=== PATIENT | male | born 1975 | race African-American/Black ===

== ENCOUNTER → 2017-01-05 | Emergency (ER) | payer BC ==
[~2017-01-05] MED LIST: KETAMINE HCL 200 MG/20 ML VIAL IVPUSH ONE; SODIUM CHLORIDE 0.9% 500 ML INFUS.BAG IV ONE; morphine CARPU-JECT 2 MG/1 ML DISP.SYRIN IVPUSH ONE; morphine CARPU-JECT 2 MG/1 ML DISP.SYRIN ONE
[2017-01-05 21:50] VITALS: BMI 27.9
--- NOTE | 2017-01-05 22:48 | PDOC ---
[id number] is a 41 year old male, with a significant past medical history, who presents to the emergency department with pain and deformity to his right ankle s/p falling off of a hoverboard tonight. The patient states he was stepping off of the hoverboard when he fell and twisted his right ankle. He denies chest pain, shortness of breath, headache and dizziness. He denies fever, chills, nausea, vomit, diarrhea and constipation. He denies dysuria, frequency, urgency and hematuria. Allergies: NKDA PCP - Dr. Hemal Renner <Jessica Pedroza - Last Filed: 01/05/17 22:52> <Jackie Bustamante - Last Filed: 01/13/17 05:16> - General Chief Complaint: Injury Stated Complaint: ANKLE PAIN Time Seen by Provider: 01/05/17 21:44 Past History <Jessica Pedroza - Last Filed: 01/05/17 22:52> - Past Medical History Other medical history: denies - Immunization History Immunization Up to Date: Yes - Psycho/Social/Smoking Cessation Hx Suicidal Ideation: No Smoking History: Never smoked Information on smoking cessation initiated: No Hx Alcohol Use: No Drug/Substance Use Hx: No <Jackie Bustamante - Last Filed: 01/13/17 05:16> - Past Medical History Allergies/Adverse Reactions: Allergies Allergy/AdvReac Type Severity Reaction Status Date / Time No Known Allergies Allergy Verified 01/05/17 21:41 Home Medications: Ambulatory Orders Ibuprofen [Motrin -] 600 mg PO TID #30 tablet 01/05/17 Oxycodone HCl/Acetaminophen [Percocet 5/325 -] 2 tab PO Q6H #30 tablet MDD 8 11/22 Review of Systems - Review of Systems Able to Perform ROS?: Yes Comments:: 01/05/17 22:53 GENERAL/CONSTITUTIONAL: No fever or chills. No weakness. HEAD, EYES, EARS, NOSE AND THROAT: No change in vision. No ear pain or discharge. No sore throat. CARDIOVASCULAR: No chest pain or shortness of breath. RESPIRATORY: No cough, wheezing, or hemoptysis. GASTROINTESTINAL: No nausea, vomiting, diarrhea or constipation. GENITOURINARY: No dysuria, frequency, or change in urination. MUSCULOSKELETAL: (+) Right ankle deformity and pain. No neck or back pain. SKIN: No rash NEUROLOGIC: No headache, vertigo, loss of consciousness, or change in strength/ sensation. ENDOCRINE: No increased thirst. No abnormal weight change. HEMATOLOGIC/LYMPHATIC: No anemia, easy bleeding, or history of blood clots. ALLERGIC/IMMUNOLOGIC: No hives or skin allergy. <Jessica Pedroza - Last Filed: 01/05/17 22:52> *Physical Exam - Vital Signs Last Vital Signs Temp Pulse Resp BP Pulse Ox 98.6 F 85 20 154/96 97 01/05/17 21:41 01/05/17 21:41 01/05/17 21:41 01/05/17 21:41 01/05/17 21:41 - Physical Exam Comments: 01/05/17 22:53 GENERAL: Awake, alert, and fully oriented, in no acute distress HEAD: No signs of trauma EYES: PERRLA, EOMI, sclera anicteric, conjunctiva clear ENT: Auricles normal inspection, hearing grossly normal, nares patent, oropharynx clear without exudates. Moist mucosa NECK: Normal ROM, supple, no lymphadenopathy, JVD, or masses LUNGS: Breath sounds equal, clear to auscultation bilaterally. No wheezes, and no crackles HEART: Regular rate and rhythm, normal S1 and S2, no murmurs, rubs or gallops ABDOMEN: Soft, nontender, normoactive bowel sounds. No guarding, no rebound. No masses EXTREMITIES: (+) Right ankle dislocation deformity and tenderness. moderate edema. DP pulses 2+ and symmetric. No bruising or tenting appreciated. No clubbing or cyanosis. No cords, erythema. NEUROLOGICAL: Cranial nerves II through XII grossly intact. Normal speech, SKIN: Warm, Dry, normal turgor, no rashes or lesions noted. <Jessica Pedroza - Last Filed: 01/05/17 22:52> - Vital Signs Last Vital Signs Temp Pulse Resp BP Pulse Ox 98.6 F 85 20 154/96 97 01/05/17 21:41 01/05/17 21:41 01/05/17 21:41 01/05/17 21:41 01/05/17 21:41 <Jackie Bustamante - Last Filed: 01/13/17 05:16> Procedures - Joint Reduction Right Joint Reduction Site: right: Posterior Dislocation (ANKLE) Pre-Procedure NV Exam: normal Conscious Sedation: No (morphine was enough for the patient) Procedure: Traction Counter Traction Post-Procedure NV Exam: normal Complications: No Post Joint Reduction Film: joint reduced Splint: Yes (orthoglass cast) Immobilized: Yes (orthoglass cast) <Jackie Bustamante - Last Filed: 01/13/17 05:16> ED Treatment Course - RADIOLOGY Radiograph Interpretation: 01/05/17 22:55 Xray of the right ankle was read by Dr. Bustamante at 22:12 Impression: There is evidence of a Trimalleolar fracture and dislocation - Medications Given in the ED: ED Medications Discontinued Medications Generic Name Dose Route Start Last Admin Trade Name Freq PRN Reason Stop Dose Admin Ketamine HCl 100 mg 01/05/17 22:03 01/05/17 22:44 Ketalar - IVPUSH 01/05/17 22:04 Not Given ONCE ONE Morphine Sulfate 2 mg 01/05/17 21:45 01/05/17 21:53 Morphine Injection - IVPUSH 01/05/17 21:46 2 mg ONCE ONE Administration Morphine Sulfate 2 mg 01/05/17 22:04 01/05/17 22:18 Morphine Injection - IVPUSH 01/05/17 22:05 2 mg ONCE ONE Administration Morphine Sulfate 2 mg 01/05/17 22:48 01/05/17 22:50 Morphine Injection - IVPUSH 01/05/17 22:49 2 mg ONCE ONE Administration Sodium Chloride 1,000 ml 01/05/17 21:45 01/05/17 21:53 Normal Saline - IV 01/05/17 21:46 1,000 ml ONCE ONE Administration <Jessica Pedroza - Last Filed: 01/05/17 22:52> - RADIOLOGY Radiology Studies Ordered: Category Date Time Status ANKLE-RIGHT [RAD] Stat Radiology 01/05/17 21:46 Taken ANKLE-RIGHT [RAD] Stat Radiology 01/05/17 22:30 Ordered - Medications Given in the ED: ED Medications Discontinued Medications Generic Name Dose Route Start Last Admin Trade Name Freq PRN Reason Stop Dose Admin Ketamine HCl 100 mg 01/05/17 22:03 01/05/17 22:44 Ketalar - IVPUSH 01/05/17 22:04 Not Given ONCE ONE Morphine Sulfate 2 mg 01/05/17 21:45 01/05/17 21:53 Morphine Injection - IVPUSH 01/05/17 21:46 2 mg ONCE ONE Administration Morphine Sulfate 2 mg 01/05/17 22:04 01/05/17 22:18 Morphine Injection - IVPUSH 01/05/17 22:05 2 mg ONCE ONE Administration Sodium Chloride 1,000 ml 01/05/17 21:45 01/05/17 21:53 Normal Saline - IV 01/05/17 21:46 1,000 ml ONCE ONE Administration <Jackie Bustamante - Last Filed: 01/13/17 05:16> Medical Decision Making - Medical Decision Making 01/05/17 22:55 Dr. Rutherford was paged via phone answering service at 22:26 requesting a call back for doctor to doctor consult regarding this patient with trimalleolar fracture/dislocation. Dr. Rutherford returned the call at 22:37 and the patients case was discussed. He suggests the patient be placed in a splint, given crutches, and follow-up in 2 weeks as outpatient for surgical repair of the trimalleolar fracture <Jessica Pedroza - Last Filed: 01/05/17 22:52> - Medical Decision Making 01/13/17 05:14 Pt tripped off of his friend's daughter's hover board and dislocated and broke his right ankle. He presents with a deformed ankle that I reduced and splinted. Pt sent home with crutches and non weightbearing. Follow with Ortho Dr. Rutherford, Pain control. Elevation. <Jcakie Bustamante - Last Filed: 01/13/17 05:16> *DC/Admit/Observation/Transfer - Attestations Scribe Attestion: 01/05/17 22:56 Documentation prepared by Jessica Pedroza, acting as medical oncology physician for Jackie Bustamante MD <Jessica Pedroza - Last Filed: 01/05/17 22:52> - Discharge Dispostion Admit: No <Jackie Bustamante - Last Filed: 01/13/17 05:16> Diagnosis at time of Disposition: Ankle dislocation, Trimalleolar fracture of right ankle - Discharge Dispostion Disposition: HOME Condition at time of disposition: Stable - Prescriptions Prescriptions: Ibuprofen [Motrin -] 600 mg PO TID #30 tablet Oxycodone HCl/Acetaminophen [Percocet 5/325 -] 2 tab PO Q6H #30 tablet MDD 8 - Referrals Referrals: Hemal Renner [Primary Care Provider] - - Patient Instructions Printed Discharge Instructions: DI for Ankle Dislocation, DI for Ankle Fracture
[2017-01-05 23:12] VITALS: BP 152/86; PULSE 90; TEMP 98.2
== END | disposition home or self-care (01) ==
LOC: JER 21:30
PROC: 2W3LX1Z Immobilization of Right Lower Extremity using Splint (ICD-10-PCS; principal; 2017-01-05)
DX: S82.851A Displaced trimalleolar fracture of right lower leg, initial encounter for closed fracture (principal); W19.XXXA Unspecified fall, initial encounter; X50.1XXA Overexertion from prolonged static or awkward postures, initial encounter; Y93.59 Activity, other involving other sports and athletics played individually; Y92.89 Other specified places as the place of occurrence of the external cause; Y99.8 Other external cause status
CPT/HCPCS: 73610-TC-RT; 99281-25

== ENCOUNTER 2019-02-02 19:38 | Emergency (ER) | payer BC ==
--- NOTE | 2019-02-02 19:47 | PDOC ---
Rapid Medical Evaluation Chief Complaint: Headache Time Seen by Provider: 02/02/19 19:44 Medical Evaluation: Allergies Allergy/AdvReac Type Severity Reaction Status Date / Time No Known Allergies Allergy Verified 01/05/17 21:41 02/02/19 19:45 I have performed a brief in person evaluation at triage on this patient. CC: WILLIAM HPI: Pt states he has a WILLIAM x 1-2 days in the occipital region. Pt states he checked his BP at home and was getting a systolic pressure of 180-190. Pt is not currently on HTN meds. Denies CP, Denies SOB PE: Skin: clear Lungs: clear Heart: RRR MS: Moves all extremities without difficulty Neuro: Alert and oriented Psych: Appropriate affect I have ordered: Basic labs at this time. Pt will proceed to the main ED for further evaluation. Discharge Disposition - Diagnosis Headache Qualifiers: Headache type: other headache syndrome Qualified Code(s): G44.89 - Other headache syndrome - Referrals - Patient Instructions - Post Discharge Activity
[2019-02-02 19:48] VITALS: BP 151/102; PULSE 102; TEMP 98.3; BMI 28.7
[2019-02-02 21:11] LABS: BASO % 0.9 % (0-2.0); EOS % 2.7 % (0-4.5); HEMATOCRIT 42.6 % (35.4-49); HEMOGLOBIN 14.7 GM/dL (11.7-16.9); LYMPH % 34.4 % (8-40); MCH 27.3 pg (25.7-33.7); MCHC 34.5 g/dl (32.0-35.9); MEAN CELL VOLUME 79.1 fl (80-96); MEAN PLT VOLUME 8.5 fl (7.5-11.1); MONO % 5.4 % (3.8-10.2); NEUT % 56.6 % (42.8-82.8); PLATELET COUNT 229 K/MM3 (134-434); RBC 5.39 M/mm3 (4.00-5.60); RDW 13.1 % (11.9-15.9); WHITE BLOOD COUNT 7.5 K/mm3 (4.0-10.0)
--- NOTE | 2019-02-02 21:34 | PDOC ---
History of Present Illness - General Chief Complaint: Headache Stated Complaint: HYPERTENSION Time Seen by Provider: 02/02/19 19:44 - History of Present Illness Initial Comments: 43 year old male with PMH of HTN and HLD (unmedicated for the past 1.5 years) presenting with sever headache for the past two days. states that he has been under a lot of personal and work stress and whenever he feels stressed he gets a sharp posterior right sided intermittent headache. The headache is slightly worse with light and sound when it is maximal. Denies exacerbation in the morning, when bending over, or otherwise performing vasalva maneuvers. Denies nausea, vomiting. fevers, chills, visual symptoms, numbness, tingling, or other symptoms. Admits to some minor relief with Tylenol. 02/02/19 21:43 Past History - Past Medical History Allergies/Adverse Reactions: Allergies Allergy/AdvReac Type Severity Reaction Status Date / Time No Known Allergies Allergy Verified 01/05/17 21:41 Home Medications: Ambulatory Orders Ibuprofen [Motrin -] 600 mg PO TID #30 tablet 01/05/17 Oxycodone HCl/Acetaminophen [Percocet 5/325 -] 2 tab PO Q6H #30 tablet MDD 8 11/22 COPD: No HTN: Yes - Immunization History Immunization Up to Date: Yes - Suicide/Smoking/Psychosocial Hx Smoking History: Never smoked Hx Alcohol Use: No Drug/Substance Use Hx: No Review of Systems - Review of Systems Constitutional: No: Chills, Diaphoresis, Fever HEENTM: No: Eye Pain, Blurred Vision, Tearing Respiratory: No: Cough, Orthopnea, Shortness of Breath Cardiac (ROS): No: Chest Pain, Edema, Irregular Heart Rate ABD/GI: No: Diarrhea, Nausea, Vomiting : No: Dysuria, Discharge Musculoskeletal: No: Back Pain, Joint Pain Integumentary: No: Bruising, Change in Color, Erythema, Flushing, Lesions Neurological: Yes: Headache. No: Numbness, Paresthesia, Pre-Existing Deficit, Seizure, Tingling Psychiatric: No: Anxiety, Depression Hematologic/Lymphatic: No: Anemia, Blood Clots, Easy Bleeding *Physical Exam - Vital Signs Last Vital Signs Temp Pulse Resp BP Pulse Ox 98.3 F 102 H 18 151/102 H 98 02/02/19 19:45 02/02/19 19:45 02/02/19 19:45 02/02/19 19:45 02/02/19 19:45 - Physical Exam General Appearance: Yes: Nourished, Appropriately Dressed. No: Apparent Distress HEENT: positive: EOMI, NANETTE, Normal ENT Inspection, Normal Voice, Other (no scalp tenderness) Neck: positive: Trachea midline, Normal Thyroid, Supple. negative: Tender, Rigid Respiratory/Chest: positive: Lungs Clear, Normal Breath Sounds. negative: Chest Tender, Respiratory Distress, Accessory Muscle Use Cardiovascular: positive: Regular Rhythm, Regular Rate Gastrointestinal/Abdominal: positive: Normal Bowel Sounds, Flat, Soft. negative : Tender Lymphatic: negative: Adenopathy, Tenderness Musculoskeletal: positive: Normal Inspection. negative: Decreased Range of Motion Extremity: positive: Normal Capillary Refill, Normal Inspection, Normal Range of Motion. negative: Tender Integumentary: positive: Normal Color, Dry, Warm Neurologic: positive: Fully Oriented, Alert, Normal Mood/Affect, Normal Response , Motor Strength / ED Treatment Course - LABORATORY CBC & Chemistry Diagram: 02/02/19 20:56 02/02/19 20:56 - ADDITIONAL ORDERS Additional order review: 02/02/19 20:56 RBC 5.39 MCV 79.1 L MCHC 34.5 RDW 13.1 MPV 8.5 Neutrophils % 56.6 Lymphocytes % 34.4 Monocytes % 5.4 Eosinophils % 2.7 Basophils % 0.9 Medical Decision Making - Medical Decision Making 43 year old male with PMH of untreated HTN and HLD presenting with headache for the past two days that are intermittent and partially relieved with Tylenol. Patient also slightly hypertensive Will obtain head t to rule out mass and CBC / CMP to rule out hypertensive emergency. Patient signed out to Dr. Paul pending CMP results and head CT. Given 1 L NS, ofirmev IV 1G, and Reglan PO and I presume this patient will go home with PCP follow up. 02/02/19 21:51 *DC/Admit/Observation/Transfer Diagnosis at time of Disposition: Headache Qualifiers: Headache type: other headache syndrome Qualified Code(s): G44.89 - Other headache syndrome - Discharge Dispostion Disposition: HOME Condition at time of disposition: Improved Decision to Admit order: No - Referrals Referrals: [facility] [Provider Group] - Patient Instructions Printed Discharge Instructions: DI for Headache Additional Instructions: Please use ibuprofen and Tylenol for your headache. Please follow up with the primary care clinic to start an anti-hypertensive medication and cholesterol medication. Please return to the ED if you have new or worsening symptoms. - Post Discharge Activity
[2019-02-02] MEDS ORDERED: ACETAMINOPHEN 1000 MG/100 ML VIAL (NON FORMULARY) IVPB ONE (21:40)
[2019-02-02] MEDS ORDERED: METOCLOPRAMIDE HCL 10 MG TABLET (FP) PO ONE ×2 (21:40→22:13)
[2019-02-02] MEDS ORDERED: SODIUM CHLORIDE 0.9% 500 ML INFUS.BAG IV ONE (21:41)
[2019-02-02 21:43] LABS: ALBUMIN 3.7 g/dl (3.4-5.0); ALK PHOS 92 U/L (45-117); ANION GAP 7 MMOL/L (8-16); BILIRUBIN,TOTAL 0.4 mg/dL (0.2-1); BLOOD UREA NITROGEN 13 mg/dL (7-18); CALCIUM 9.2 mg/dL (8.5-10.1); CHLORIDE 104 mmol/L (98-107); CO2 30 mmol/L (21-32); CREATININE 1.2 mg/dL (0.55-1.3); GLUCOSE,RANDOM 89 mg/dL (74-106); POTASSIUM 3.6 mmol/L (3.5-5.1); SGOT/AST 43 U/L (15-37); SGPT/ALT 119 U/L (13-61); SODIUM 141 mmol/L (136-145); TOT PROT 7.5 g/dl (6.4-8.2)
[2019-02-02] MEDS ORDERED: ACETAMINOPHEN INJECTION 100 ML IVPB ONE (22:14)
--- NOTE | 2019-02-02 22:16 | PDOC ---
*Physical Exam - Vital Signs Last Vital Signs Temp Pulse Resp BP Pulse Ox 98.3 F 102 H 18 151/102 H 98 02/02/19 19:45 02/02/19 19:45 02/02/19 19:45 02/02/19 19:45 02/02/19 19:45 - Physical Exam General Appearance: Yes: Nourished, Appropriately Dressed HEENT: positive: Normal Voice, Hearing Grossly Normal Neck: positive: Trachea midline, Supple Respiratory/Chest: positive: Lungs Clear, Normal Breath Sounds Cardiovascular: positive: S1, S2. negative: JVD, Murmur Gastrointestinal/Abdominal: positive: Normal Bowel Sounds, Soft Musculoskeletal: negative: CVA Tenderness (R), CVA Tenderness (L) Extremity: positive: Normal Capillary Refill, Normal Inspection Integumentary: positive: Normal Color, Dry, Warm Neurologic: positive: Fully Oriented, Alert ED Treatment Course - LABORATORY CBC & Chemistry Diagram: 02/02/19 20:56 02/02/19 20:56 - ADDITIONAL ORDERS Additional order review: Laboratory Results 02/02/19 20:56 Sodium 141 Potassium 3.6 Chloride 104 Carbon Dioxide 30 Anion Gap 7 L BUN 13 Creatinine 1.2 Creat Clearance w eGFR 66.08 Random Glucose 89 Calcium 9.2 Total Bilirubin 0.4 AST 43 H ALT 119 H Alkaline Phosphatase 92 Total Protein 7.5 Albumin 3.7 02/02/19 20:56 RBC 5.39 MCV 79.1 L MCHC 34.5 RDW 13.1 MPV 8.5 Neutrophils % 56.6 Lymphocytes % 34.4 Monocytes % 5.4 Eosinophils % 2.7 Basophils % 0.9 Medical Decision Making - Medical Decision Making 02/02/19 22:07 Patient signed out by Dr. Carranza (Resident) 43 year old male with 2 day h/o headache - intermittent, non-positional, relieved with Tylenol, some associated photophobia and sonophobia. S/p Reglan, Tylenol, NS Head CT pending to r/o acute hemorrhage 02/02/19 22:12 Patient evaluated @bedside notes h/o non-adherence to anti-hypertensives for the last 2-3 weeks because he ran out of medication and his PMD, Dr. Renner retired. States he measured his BP at home today and it was 190's/100's. Repeat BP @ bedside 163/102. Will repeat once pain controlled. 02/02/19 23:18 ALT 119, other labs unremarkable My read of Head CT shows no acute bleed 02/03/19 01:[address] negative Patient reassessed @ bedside, BP 142/103 Symptomatically improved Will d/c home with 10 day prescription of BP medication, referral to primary care and return precautions. Clinical Impression: Tension WILLIAM vs. new onset migraine I discussed the physical exam findings, ancillary test results and final diagnoses with the patient. I answered all of the patient's questions. The patient was satisfied with the care received and felt comfortable with the discharge plan and treatment plan. The patient will return to the Emergency Department with any new, persistent or worsening symptoms. *DC/Admit/Observation/Transfer Diagnosis at time of Disposition: Headache Qualifiers: Headache type: other headache syndrome Qualified Code(s): G44.89 - Other headache syndrome - Discharge Dispostion Disposition: HOME Condition at time of disposition: Improved - Prescriptions Prescriptions: Amlodipine Besylate [Norvasc -] 5 mg PO DAILY #10 tablet - Referrals Referrals: [facility] [place] Group] - Patient Instructions Printed Discharge Instructions: DI for Headache Additional Instructions: You can take Motrin (up to 3200 mg daily) alternating Tylenol (up to 4000 mg daily) every six hours for the next 1 week for your headache. We have sent a 10 day prescription of your blood pressure medication to your pharmacy. Make a follow-up appointment with a primary care doctor to establish usp care. We have provided you with a referral or you can call your insurance company for a list of doctors. Your care is not complete until you are evaluated by a primary care doctor. Return to the Emergency Department for any new/worsening/concerning symptoms. - Post Discharge Activity
--- NOTE | 2019-02-03 00:43 | PDOC ---
Documentation entered by Jennifer Cassidy SCRIBE, acting as scribe for Gloria Lopez DO. Gloria Lopez DO: This documentation has been prepared by the [facility] child Daisy, SCRIBE, under my direction and personally reviewed by me in its entirety. I confirm that the documentation accurately reflects all work , treatment, procedures, and medical decision making performed by me. Attending Attestation - Resident Resident Name: Chastity Carranza - ED Attending Attestation I have performed the following: I have examined & evaluated the patient, The case was reviewed & discussed with the resident, I agree w/resident's findings & plan - HPI HPI: 02/02/19 22:23 The patient s a 43 YOM with a PMH of HTN and HLD who presents to the ER for evaluation of a 2 day history of a headache in the setting of significant stress. Endorses photophobia and sonophobia. Denies associated nausea or vomiting, numbness, tingling, weakness, or vision changes. Allergies: NKDA Social Hx: Denies toxic habits. Surgeries: None reported. - Physicial Exam PE: 02/02/19 22:23 Agree with resident's exam. - Medical Decision Making 02/03/19 00:41 Well-appearing 43-year-old male complaining of intermittent posterior headache, increased when stressed Patient found his blood pressure to be elevated at home and admits to noncompliance with his antihypertensives CT scan of the brain shows no acute abnormality On reevaluation at 12:30 AM patient is asymptomatic For headache was not described as thunderclap in onset, and has been fluctuating in intensity and is not described as the worst headache of his life There is no accompanying neck stiffness or fever At this time lumbar puncture is not clinically indicated and would present more risk and potential benefit Patient will be given a short-term refill of his amlodipine and primary care follow-up as he states his previous primary care has now retired
== END 2019-02-03 01:07 | disposition home or self-care (01) ==
LOC: JER 19:38
PROC: 3E033NZ Introduction of Analgesics, Hypnotics, Sedatives into Peripheral Vein, Percutaneous Approach (ICD-10-PCS; principal; 2019-02-02)
DX: G44.89 Other headache syndrome (principal); I10 Essential (primary) hypertension; E78.5 Hyperlipidemia, unspecified
CPT/HCPCS: 36415; 70450-TC; 80053; 85025; 99281-25; J0131